=== PATIENT | female | born 1960 | race African-American/Black ===

== ENCOUNTER 2017-04-03 21:46 | Emergency (ER) | payer MEDICARE, MEDICAID ==
[~2017-04-03] VITALS: Ht 182.9 cm; Wt 106.0 kg
[2017-04-03] MEDS ORDERED: SODIUM CHLORIDE 0.9% 1,000 ML IV ONE (22:11)
[2017-04-03] MEDS ORDERED: ONDANSETRON HCL 4MG/2ML VIAL IV STA (22:11)
[2017-04-03] MEDS ORDERED: MORPHINE SULFATE 4 MG/ML CPJ (NOT FOR IM USE) IV STA (22:11)
[2017-04-03] MEDS ORDERED: FAMOTIDINE 20MG/2ML VIAL IV STA (22:11)
[2017-04-03 22:38] LABS: BASOPHILS % 0.7 % (0.0-2.0); EOSINOPHILS % 1.3 % (0.0-5.0); HEMATOCRIT. 28.8 % (36.0-48.0); HEMOGLOBIN. 9.2 g/dL (12.0-16.0); LYMPHOCYTES % 13.7 % (20.0-50.0); MEAN CORPUSCULAR HEMOGLOBIN 26.9 pg (28.0-32.0); MEAN CORPUSCULAR VOLUME 84.2 fL (81.0-99.0); MEAN PLATELET VOLUME 9.8 fl (7.4-10.4); MONOCYTES % 6.2 % (2.0-8.0); NEUTROPHILS % 78.1 % (40.0-76.0); PLATELET 194 x1000/uL (130-400); RED BLOOD CELL COUNT 3.42 mill/uL (4.2-5.4); RED CELL DISTRIBUTION WIDTH 15.2 % (11.6-14.6)
[2017-04-03 22:45] LABS: CARBON DIOXIDE 28 mEq/L (21-32); CHLORIDE 103 mEq/L (98-107); INR 1.1
[2017-04-03 22:50] LABS: ETHANOL BLOOD < 10 mg/dL
[2017-04-03 22:53] LABS: TROPONIN I 0.03 ng/mL (0.00-0.04)
[2017-04-04] MEDS ORDERED: SORBITOL 70% SOLN 30ML PO ONE
[2017-04-04] MEDS ORDERED: NA PHOS,M-B/NA PHOS,DI-BA ENEMA 118ML PR ONE
[2017-04-04] MEDS ORDERED: MORPHINE SULFATE 4 MG/ML CPJ (NOT FOR IM USE) IV ONE (00:45)
[2017-04-04] MEDS ORDERED: ONDANSETRON HCL 4MG/2ML VIAL IV ONE ×2 (00:45→01:45)
[2017-04-04] MEDS ORDERED: KETOROLAC 30MG/ML VIAL IV ONE (00:45)
[2017-04-04] MEDS ORDERED: ONDANSETRON HCL 4MG/2ML VIAL IV NR (01:45)
[2017-04-04] MEDS ORDERED: MORPHINE SULFATE 2 MG/ML CPJ (NOT FOR IM USE) ONE (01:48)
[2017-04-04] MEDS ORDERED: CLONIDINE 0.2MG TABLET PO ONE (02:00)
[2017-04-04 04:20] VITALS: BP 199/96
== END 2017-04-04 04:20 | disposition home or self-care (01) ==
LOC: ER 22:02 → EDBEDREQSVC 22:42 → CANBEDREQ 04-04 02:44 → ER 04-04 04:20
DX: K59.00 Constipation, unspecified (principal); I10 Essential (primary) hypertension; J44.9 Chronic obstructive pulmonary disease, unspecified; E11.9 Type 2 diabetes mellitus without complications; Z86.73 Personal history of transient ischemic attack (TIA), and cerebral infarction without residual deficits; Z88.1 Allergy status to other antibiotic agents
CPT/HCPCS: 36415; 71010; 74176; 80053; 83605; 83690; 83880; 84484; 85025; 85610; 93005; 96361; 96374; 96375; 96376; 99285; G0482; J1885; J2270; J2405; J3490; J7030

== ENCOUNTER 2017-05-01 05:19 | Inpatient (IN) | payer MEDICARE, MEDICAID ==
[2017-05-01] VITALS (33 sets, daily range): BP systolic 139–164; BP diastolic 69–84
[~2017-05-01] VITALS: Ht 165.1 cm; Wt 112.5 kg
[2017-05-01] MEDS ORDERED: METHYLPREDNISOLONE SOD SUCC 125 MG/2 ML VIAL IV STA (05:25)
[2017-05-01] MEDS ORDERED: ALBUTEROL (0.083%) 2.5MG/3ML NEB HHN STA (05:25)
[2017-05-01] MEDS ORDERED: IPRATROPIUM BROMIDE (0.02%) 0.5MG/2.5ML NEB HHN STA (05:25)
[2017-05-01] MEDS ORDERED: LORAZEPAM 2MG/ML CPJ ONE (06:13)
[2017-05-01] MEDS ORDERED: PROPOFOL 10MG/ML 100ML 100 ML IV SCH (06:15)
[2017-05-01] MEDS ORDERED: LORAZEPAM 2MG/ML CPJ IV ONE ×2 (06:15)
[2017-05-01 06:17] LABS: CARBON DIOXIDE 21 mEq/L (21-32); CHLORIDE 107 mEq/L (98-107); TROPONIN I 0.02 ng/mL (0.00-0.04)
[2017-05-01 06:18] LABS: INR 1.1; PROTHROMBIN TIME 11.1 sec
[2017-05-01 06:41] LABS: CLARITY URINE TURBID (CLEAR); COLOR URINE YELLOW (YELLOW); GLUCOSE URINE NEGATIVE (NEGATIVE); KETONES URINE NEGATIVE (NEGATIVE); LEUKOCYTE ESTERASE URINE NEGATIVE (NEGATIVE); NITRITE URINE NEGATIVE (NEGATIVE); OCCULT BLOOD URINE 3+ (NEGATIVE); PROTEIN URINE 3+ (NEGATIVE); SPECIFIC GRAVITY URINE 1.017 (1.005-1.030); UROBILINOGEN URINE 0.2 E.U./dL (0.2-1.0)
[2017-05-01] MEDS ORDERED: NITROGLYCERIN 50MG PREMIX 250 ML IV ONE (06:45)
[2017-05-01] MEDS ORDERED: LEVOFLOXACIN 750MG PREMIX 150 ML IV ONE (06:45)
[2017-05-01] MEDS ORDERED: FUROSEMIDE 100MG/10ML VIAL IV SCH (06:45)
[2017-05-01 06:59] LABS: BASOPHILS % 0.4 % (0.0-2.0); EOSINOPHILS % 1.3 % (0.0-5.0); HEMATOCRIT. 28.1 % (36.0-48.0); HEMOGLOBIN. 8.8 g/dL (12.0-16.0); LYMPHOCYTES % 8.1 % (20.0-50.0); MEAN CORPUSCULAR HEMOGLOBIN 26.9 pg (28.0-32.0); MEAN CORPUSCULAR VOLUME 85.6 fL (81.0-99.0); MEAN PLATELET VOLUME 9.2 fl (7.4-10.4); MONOCYTES % 4.1 % (2.0-8.0); NEUTROPHILS % 86.1 % (40.0-76.0); PLATELET 170 x1000/uL (130-400); RED BLOOD CELL COUNT 3.28 mill/uL (4.2-5.4); RED CELL DISTRIBUTION WIDTH 16.7 % (11.6-14.6)
[2017-05-01 07:01] LABS: BG BASE EXCESS -5.6 mmol/L (-2.0-2.0); BG CARBOXYHEMOGLOBIN 0.1 % (0.5-1.5); BG DEOXYHEMOGLOBIN 1.4 % (0.0-5.0); BG FRACTION INSPIRED OXYGEN 100; BG HCO3 ACT 20.4 mmol/L (22.0-26.0); BG METHEMOGLOBIN 0.4 % (0.0-1.5); BG OXYGEN SATURATION 98.6 % (92.0-98.5); BG OXYHEMOGLOBIN 98.1 % (94.0-97.0); BG PCO2 42.3 mmHg (35.0-45.0); BG PH 7.302 (7.350-7.450); BG PO2 165.4 mmHg (75.0-100.0); BG SAMPLE SITE LEFT RADIAL; BG TIDAL VOLUME(mL) 500 mL; BG TOTAL HEMOGLOBIN 9.5 g/dL (12.0-18.0); BG VENT MODE VENT - A/C; BG VENT RATE 14 set
[2017-05-01] MEDS ORDERED: SUCR1TAB30 PO (08:25)
[2017-05-01] MEDS ORDERED: POTA10TA15 PO (08:25)
[2017-05-01] MEDS ORDERED: VENL-180 PO (08:25)
[2017-05-01] MEDS ORDERED: NEPVIT PO (08:25)
[2017-05-01] MEDS ORDERED: RANI150C12 PO (08:25)
[2017-05-01] MEDS ORDERED: METO-298 PO (08:25)
[2017-05-01] MEDS ORDERED: DOCU-138 PO (08:25)
[2017-05-01] MEDS ORDERED: DOXA2TAB2 PO (08:25)
[2017-05-01] MEDS ORDERED: NAPR-679 PO (08:25)
[2017-05-01] MEDS ORDERED: CLON0.3T PO (08:32)
[2017-05-01] MEDS ORDERED: LORAZEPAM 2MG/ML CPJ IV PRN (09:00)
[2017-05-01] MEDS ORDERED: ENOXAPARIN 40MG/0.4ML SYR SUBCUT SCH ×2 (09:00→09:15)
[2017-05-01] MEDS ORDERED: LORAZEPAM 0.5MG TABLET PO PRN (09:15)
[2017-05-01] MEDS ORDERED: NOREPINEPHRINE 4 MG in DEXT 5% WATER 246 ML IV PRN (09:15)
[2017-05-01] MEDS ORDERED: HYDROMORPHONE HCL/PF 2MG/ML CPJ IV PRN (09:15)
[2017-05-01] MEDS ORDERED: DIPHENHYDRAMINE 50MG/ML VIAL IV PRN (09:15)
[2017-05-01] MEDS ORDERED: ACETAMINOPHEN 650MG SUPP PR PRN (09:15)
[2017-05-01] MEDS ORDERED: MAGNESIUM/ALUMINUM HYDROXIDE/SIMETHICONE 30ML UDC PO PRN (09:15)
[2017-05-01] MEDS ORDERED: DEXTROSE 50% WATER 50ML SYRINGE IV PRN ×2 (09:15→17:15)
[2017-05-01] MEDS ORDERED: ACETAMINOPHEN 325MG TABLET NG PRN (09:15)
[2017-05-01] MEDS ORDERED: IPRATROPIUM/ALBUTEROL 0.5-3(2.5)MG/3ML NEB INH PRN (09:15)
[2017-05-01] MEDS ORDERED: DOCUSATE SODIUM 100MG CAPSULE PO PRN (09:15)
[2017-05-01] MEDS ORDERED: LEVOFLOXACIN 500MG PREMIX 100 ML IV SCH (09:30)
[2017-05-01 09:33] LABS: *AMPHETAMINES SCREEN URINE NEGATIVE (NEGATIVE); *BARBITURATES SCREEN URINE NEGATIVE (NEGATIVE); *BENZODIAZEPINES SCREEN URINE PRESUMTIVE POSITIVE (NEGATIVE); *COCAINE SCREEN URINE NEGATIVE (NEGATIVE); CANNABINOID URINE SCREEN NEGATIVE (NEGATIVE); METHADONE URINE SCREEN NEGATIVE (NEGATIVE); OPIATES URINE SCREEN PRESUMTIVE POSITIVE (NEGATIVE); PHENCYCLIDINE URINE SCREEN NEGATIVE (NEGATIVE)
[2017-05-01] MEDS: PANTOPRAZOLE SODIUM 40 MG/VIAL IV SCH (09:34)
[2017-05-01] MEDS: SODIUM CHLORIDE 0.9% 1,000 ML IV SCH (09:35)
[2017-05-01] MEDS: PROPOFOL 10MG/ML 100ML 100 ML IV PRN ×4 (09:36→23:02)
[2017-05-01] MEDS ORDERED: METOPROLOL TARTRATE 50MG TABLET PO ONE (09:45)
[2017-05-01] MEDS ORDERED: PANTOPRAZOLE SODIUM 40 MG/VIAL IV SCH (09:45)
[2017-05-01] MEDS: FOLIC ACID/VITAMIN B COMP W-C TABLET PO SCH (09:59)
[2017-05-01] MEDS: METOPROLOL TARTRATE 50MG TABLET PO SCH (09:59)
[2017-05-01] MEDS: BLOOD SUGAR DIAGNOSTIC STRIP TEST SCH ×3 (11:04→20:51)
[2017-05-01] MEDS: INSULIN LISPRO 100 UNITS/ML SUBCUT SCH ×3 (11:05→21:01)
[2017-05-01] MEDS: DOXAZOSIN MESYLATE 2MG TABLET PO SCH (11:06)
[2017-05-01] MEDS ORDERED: SUCCINYLCHOLINE CHLORIDE 200MG/10ML VIAL IV ONE (11:13)
[2017-05-01] MEDS ORDERED: ETOMIDATE 2MG/ML 10ML VIAL IV ONE (11:13)
[2017-05-01] MEDS: IPRATROPIUM/ALBUTEROL 0.5-3(2.5)MG/3ML NEB HHN SCH ×3 (11:15→19:59)
[2017-05-01] MEDS ORDERED: IPRATROPIUM/ALBUTEROL 0.5-3(2.5)MG/3ML NEB HHN SCH (12:00)
[2017-05-01] MEDS ORDERED: DOCUSATE SODIUM SUGAR FREE 100MG/10ML UDC NG PRN (12:15)
[2017-05-01] MEDS: CLONIDINE 0.3MG TABLET PO SCH ×3 (12:21→20:53)
[2017-05-01] MEDS: DOCUSATE SODIUM SUGAR FREE 100MG/10ML UDC NG SCH ×3 (12:21→20:50)
[2017-05-01] MEDS: METHYLPREDNISOLONE SOD SUCC 40 MG/ML VIAL IV SCH ×2 (13:00→21:17)
[2017-05-01] MEDS ORDERED: DOCUSATE SODIUM 100MG CAPSULE PO SCH (13:00)
[2017-05-01] MEDS ORDERED: METHYLPREDNISOLONE SOD SUCC 125 MG/2 ML VIAL IV SCH (14:00)
[2017-05-01 15:29] LABS: CREATINE KINASE MB FRACTION 2.8 ng/mL (0.5-3.6); TROPONIN I 0.12 ng/mL (0.00-0.04)
[2017-05-01] MEDS: FUROSEMIDE 40MG/4ML VIAL IVP SCH (17:06)
[2017-05-01] MEDS ORDERED: INSULIN LISPRO 100 UNITS/ML SUBCUT SCH (18:20)
[2017-05-01] MEDS: METRONIDAZOLE 500 MG PREMIX 100 ML IV SCH (20:53)
[2017-05-01] MEDS ORDERED: VANCOMYCIN 2,000 MG in DEXT 5% WATER 500 ML IV SCH (21:00)
[2017-05-01 22:42] LABS: CREATINE KINASE MB FRACTION 2.2 ng/mL (0.5-3.6); TROPONIN I 0.08 ng/mL (0.00-0.04)
[2017-05-02] VITALS (64 sets, daily range): BP systolic 122–199; BP diastolic 57–117
[2017-05-02] MEDS: INSULIN LISPRO 100 UNITS/ML SUBCUT SCH ×6 (00:56→20:25)
[2017-05-02] MEDS: METRONIDAZOLE 500 MG PREMIX 100 ML IV SCH ×3 (03:54→20:20)
[2017-05-02] MEDS: PROPOFOL 10MG/ML 100ML 100 ML IV PRN ×2 (03:54→08:58)
[2017-05-02] MEDS: BLOOD SUGAR DIAGNOSTIC STRIP TEST SCH ×6 (03:54→20:20)
[2017-05-02] MEDS: IPRATROPIUM/ALBUTEROL 0.5-3(2.5)MG/3ML NEB HHN SCH ×7 (04:03→23:50)
[2017-05-02] MEDS: METHYLPREDNISOLONE SOD SUCC 40 MG/ML VIAL IV SCH ×3 (05:07→21:16)
[2017-05-02] MEDS: SODIUM CHLORIDE 0.9% 1,000 ML IV SCH (05:07)
[2017-05-02] MEDS: FUROSEMIDE 40MG/4ML VIAL IVP SCH ×2 (05:07→14:19)
[2017-05-02 05:21] LABS: BASOPHILS % 0.1 % (0.0-2.0); HEMATOCRIT. 24.9 % (36.0-48.0); LYMPHOCYTES % 7.3 % (20.0-50.0); MEAN CORPUSCULAR HEMOGLOBIN 27.4 pg (28.0-32.0); MEAN CORPUSCULAR VOLUME 84.9 fL (81.0-99.0); MEAN PLATELET VOLUME 10.1 fl (7.4-10.4); MONOCYTES % 4.3 % (2.0-8.0); NEUTROPHILS % 88.3 % (40.0-76.0); PLATELET 168 x1000/uL (130-400); RED BLOOD CELL COUNT 2.93 mill/uL (4.2-5.4); RED CELL DISTRIBUTION WIDTH 16.7 % (11.6-14.6)
[2017-05-02 05:38] LABS: CREATINE KINASE MB FRACTION 1.9 ng/mL (0.5-3.6); TROPONIN I 0.06 ng/mL (0.00-0.04)
[2017-05-02 08:31] LABS: BG BASE EXCESS -0.9 mmol/L (-2.0-2.0); BG CARBOXYHEMOGLOBIN 0.3 % (0.5-1.5); BG FRACTION INSPIRED OXYGEN 50; BG HCO3 ACT 24.2 mmol/L (22.0-26.0); BG METHEMOGLOBIN 0.2 % (0.0-1.5); BG OXYHEMOGLOBIN 98.5 % (94.0-97.0); BG PCO2 41.7 mmHg (35.0-45.0); BG PH 7.381 (7.350-7.450); BG PO2 168.7 mmHg (75.0-100.0); BG SAMPLE SITE RIGHT RADIAL; BG TIDAL VOLUME(mL) 550 mL; BG TOTAL HEMOGLOBIN 8.6 g/dL (12.0-18.0); BG VENT MODE VENT - A/C; BG VENT RATE 14 set
[2017-05-02 08:53] LABS: T4 FREE 1.54 ng/dL (0.76-1.46)
[2017-05-02] MEDS: FOLIC ACID/VITAMIN B COMP W-C TABLET PO SCH (08:56)
[2017-05-02] MEDS: PANTOPRAZOLE SODIUM 40 MG/VIAL IV SCH (08:56)
[2017-05-02] MEDS: DOCUSATE SODIUM SUGAR FREE 100MG/10ML UDC NG SCH ×4 (08:56→20:19)
[2017-05-02] MEDS: POTASSIUM CHLORIDE 20MEQ TABLET SR PO SCH (08:56)
[2017-05-02] MEDS: DOXAZOSIN MESYLATE 2MG TABLET PO SCH (08:57)
[2017-05-02] MEDS: METOPROLOL TARTRATE 50MG TABLET PO SCH (08:57)
[2017-05-02] MEDS ORDERED: ENOXAPARIN 40MG/0.4ML SYR SUBCUT SCH (09:00)
[2017-05-02] MEDS: AZTREONAM 1 G in DEXTROSE 5% WATER 50 ML IV SCH ×2 (10:05→21:16)
[2017-05-02] MEDS: CLONIDINE 0.3MG TABLET PO SCH ×4 (10:05→20:20)
[2017-05-02] MEDS: ENALAPRIL 1.25MG/ML VIAL 1ML IV PRN (10:05)
[2017-05-02] MEDS: LEVOFLOXACIN 250MG PREMIX 50 ML IV SCH (10:24)
[2017-05-02] MEDS: FENTANYL CITRATE/PF 500 MCG in SODIUM CHLORIDE 0.9% 40 ML IV PRN ×2 (11:10→16:06)
[2017-05-02 11:22] LABS: TROPONIN I 0.06 ng/mL (0.00-0.04)
[2017-05-02 11:23] LABS: CREATINE KINASE MB FRACTION 1.9 ng/mL (0.5-3.6)
[2017-05-02] MEDS: LORAZEPAM 2MG/ML CPJ IV PRN (13:27)
[2017-05-02] MEDS ORDERED: HYDRALAZINE 20MG/ML VIAL IV SCH (14:00)
[2017-05-02] MEDS ORDERED: SODIUM CHLORIDE 0.9% 1,000 ML IV SCH (14:02)
[2017-05-02] MEDS ORDERED: NITROGLYCERIN 50MG PREMIX 250 ML IV SCH (14:15)
[2017-05-02] MEDS: AMLODIPINE 5MG TABLET NG SCH (14:34)
[2017-05-02] MEDS: NITROGLYCERIN 50MG PREMIX 250 ML IV SCH (15:48)
[2017-05-02] MEDS ORDERED: SODIUM CHLORIDE 0.9% 1,000 ML IV ONE (16:54)
[2017-05-02] MEDS: VANCOMYCIN 750 MG PREMIX 150 ML IV SCH (20:20)
[2017-05-02] MEDS ORDERED: FENTANYL CITRATE/PF 1,000 MCG in SODIUM CHLORIDE 0.9% 80 ML IV PRN (21:00)
[2017-05-02] MEDS ORDERED: VANCOMYCIN 1 G PREMIX 200 ML IV SCH (21:00)
[2017-05-02] MEDS: INSULIN DETEMIR UD 100 UNITS/ML SYR SUBCUT SCH (21:20)
[2017-05-03] VITALS (107 sets, daily range): BP systolic 128–184; BP diastolic 47–160
[2017-05-03] MEDS: BLOOD SUGAR DIAGNOSTIC STRIP TEST SCH ×6 (00:49→20:24)
[2017-05-03] MEDS: INSULIN LISPRO 100 UNITS/ML SUBCUT SCH ×7 (01:02→23:43)
[2017-05-03] MEDS ORDERED: FENTANYL CITRATE/PF 1,000 MCG in SODIUM CHLORIDE 0.9% 100 ML IV PRN (01:15)
[2017-05-03] MEDS: LORAZEPAM 2MG/ML CPJ IV PRN ×3 (03:01→23:30)
[2017-05-03] MEDS: METRONIDAZOLE 500 MG PREMIX 100 ML IV SCH ×3 (03:44→19:43)
[2017-05-03] MEDS: IPRATROPIUM/ALBUTEROL 0.5-3(2.5)MG/3ML NEB HHN SCH ×5 (04:17→20:40)
[2017-05-03] MEDS: METHYLPREDNISOLONE SOD SUCC 40 MG/ML VIAL IV SCH ×2 (05:49→20:24)
[2017-05-03] MEDS: FENTANYL CITRATE/PF 1,000 MCG in SODIUM CHLORIDE 0.9% 80 ML IV PRN ×2 (05:50→19:20)
[2017-05-03 06:24] LABS: TROPONIN I 0.04 ng/mL (0.00-0.04)
[2017-05-03 07:46] LABS: BASOPHILS % 0.1 % (0.0-2.0); LYMPHOCYTES % 7.6 % (20.0-50.0); MEAN CORPUSCULAR HEMOGLOBIN 27.4 pg (28.0-32.0); MEAN CORPUSCULAR VOLUME 83.5 fL (81.0-99.0); MONOCYTES % 5.3 % (2.0-8.0); PLATELET 183 x1000/uL (130-400); RED BLOOD CELL COUNT 2.48 mill/uL (4.2-5.4); RED CELL DISTRIBUTION WIDTH 16.9 % (11.6-14.6)
[2017-05-03 07:51] LABS: HEMATOCRIT. 20.7 % (36.0-48.0); HEMOGLOBIN. 6.8 g/dL (12.0-16.0)
[2017-05-03 08:26] LABS: BG BASE EXCESS -1.1 mmol/L (-2.0-2.0); BG CARBOXYHEMOGLOBIN 0.6 % (0.5-1.5); BG DEOXYHEMOGLOBIN 2.6 % (0.0-5.0); BG FRACTION INSPIRED OXYGEN 40; BG HCO3 ACT 24.6 mmol/L (22.0-26.0); BG METHEMOGLOBIN 0.6 % (0.0-1.5); BG OXYGEN SATURATION 97.4 % (92.0-98.5); BG OXYHEMOGLOBIN 96.2 % (94.0-97.0); BG PCO2 45.6 mmHg (35.0-45.0); BG PH 7.349 (7.350-7.450); BG PO2 101.3 mmHg (75.0-100.0); BG SAMPLE SITE RIGHT RADIAL; BG TIDAL VOLUME(mL) 550 mL; BG TOTAL HEMOGLOBIN 7.7 g/dL (12.0-18.0); BG VENT MODE VENT - A/C; BG VENT RATE 14 set
[2017-05-03] MEDS: AZTREONAM 1 G in DEXTROSE 5% WATER 50 ML IV SCH ×2 (08:41→21:09)
[2017-05-03] MEDS: AMLODIPINE 5MG TABLET NG SCH (08:41)
[2017-05-03] MEDS: PANTOPRAZOLE SODIUM 40 MG/VIAL IV SCH (08:41)
[2017-05-03] MEDS: DOCUSATE SODIUM SUGAR FREE 100MG/10ML UDC NG SCH ×4 (08:41→21:09)
[2017-05-03] MEDS: ONDANSETRON HCL 4MG/2ML VIAL IV PRN (08:41)
[2017-05-03] MEDS: CLONIDINE 0.3MG TABLET PO SCH ×4 (08:42→20:24)
[2017-05-03] MEDS: METOPROLOL TARTRATE 25MG TABLET PO SCH ×2 (08:42→20:23)
[2017-05-03] MEDS: FOLIC ACID/VITAMIN B COMP W-C TABLET PO SCH (08:42)
[2017-05-03] MEDS: DOXAZOSIN MESYLATE 2MG TABLET PO SCH (08:45)
[2017-05-03] MEDS: NITROGLYCERIN 50MG PREMIX 250 ML IV SCH ×3 (08:53→17:03)
[2017-05-03] MEDS: POTASSIUM CHLORIDE 20MEQ TABLET SR PO SCH ×2 (09:00→16:38)
[2017-05-03] MEDS: FUROSEMIDE 40MG/4ML VIAL IVP SCH ×2 (09:00→16:38)
[2017-05-03] MEDS: LEVOFLOXACIN 250MG PREMIX 50 ML IV SCH (11:09)
[2017-05-03] MEDS: METOCLOPRAMIDE HCL 10MG/2ML VIAL IV SCH ×3 (12:08→23:43)
[2017-05-03] MEDS: HYDRALAZINE HCL 50MG TABLET PO SCH (18:37)
[2017-05-03 20:17] LABS: HEMATOCRIT 25.4 % (36.0-48.0); HEMOGLOBIN 8.3 g/dL (12.0-16.0)
[2017-05-03] MEDS: VANCOMYCIN 750 MG PREMIX 150 ML IV SCH (21:09)
[2017-05-03] MEDS: INSULIN DETEMIR UD 100 UNITS/ML SYR SUBCUT SCH (21:10)
[2017-05-04] VITALS (77 sets, daily range): BP systolic 128–180; BP diastolic 57–117
[2017-05-04] MEDS: IPRATROPIUM/ALBUTEROL 0.5-3(2.5)MG/3ML NEB HHN SCH ×6 (00:18→20:26)
[2017-05-04] MEDS: BLOOD SUGAR DIAGNOSTIC STRIP TEST SCH ×6 (00:21→21:09)
[2017-05-04] MEDS: METRONIDAZOLE 500 MG PREMIX 100 ML IV SCH ×3 (04:26→19:53)
[2017-05-04] MEDS: FENTANYL CITRATE/PF 1,000 MCG in SODIUM CHLORIDE 0.9% 80 ML IV PRN (04:39)
[2017-05-04] MEDS: INSULIN LISPRO 100 UNITS/ML SUBCUT SCH ×5 (05:25→21:09)
[2017-05-04] MEDS: METOCLOPRAMIDE HCL 10MG/2ML VIAL IV SCH ×4 (05:26→23:08)
[2017-05-04] MEDS: HYDRALAZINE HCL 50MG TABLET PO SCH ×3 (05:26→21:09)
[2017-05-04 07:21] LABS: BG BASE EXCESS -2.5 mmol/L (-2.0-2.0); BG CARBOXYHEMOGLOBIN 0.3 % (0.5-1.5); BG HCO3 ACT 22.1 mmol/L (22.0-26.0); BG METHEMOGLOBIN 0.4 % (0.0-1.5); BG OXYHEMOGLOBIN 97.3 % (94.0-97.0); BG PCO2 37.1 mmHg (35.0-45.0); BG PH 7.392 (7.350-7.450); BG PO2 126.4 mmHg (75.0-100.0); BG SAMPLE SITE RIGHT RADIAL; BG TIDAL VOLUME(mL) 600 mL; BG TOTAL HEMOGLOBIN 10.2 g/dL (12.0-18.0); BG VENT MODE VENT - A/C; BG VENT RATE 14 set
[2017-05-04 07:29] LABS: BASOPHILS % 0.3 % (0.0-2.0); HEMATOCRIT. 27.1 % (36.0-48.0); HEMOGLOBIN. 8.7 g/dL (12.0-16.0); LYMPHOCYTES % 8.6 % (20.0-50.0); MEAN CORPUSCULAR HEMOGLOBIN 26.7 pg (28.0-32.0); MEAN CORPUSCULAR VOLUME 83.4 fL (81.0-99.0); MEAN PLATELET VOLUME 9.9 fl (7.4-10.4); MONOCYTES % 4.4 % (2.0-8.0); NEUTROPHILS % 86.7 % (40.0-76.0); PLATELET 187 x1000/uL (130-400); RED BLOOD CELL COUNT 3.25 mill/uL (4.2-5.4); RED CELL DISTRIBUTION WIDTH 17.2 % (11.6-14.6)
[2017-05-04] MEDS: PANTOPRAZOLE SODIUM 40 MG/VIAL IV SCH (08:37)
[2017-05-04] MEDS: AMLODIPINE 5MG TABLET NG SCH ×2 (08:37→20:56)
[2017-05-04] MEDS: FUROSEMIDE 40MG/4ML VIAL IVP SCH (08:37)
[2017-05-04] MEDS: METHYLPREDNISOLONE SOD SUCC 40 MG/ML VIAL IV SCH ×2 (08:37→20:55)
[2017-05-04] MEDS: DOCUSATE SODIUM SUGAR FREE 100MG/10ML UDC NG SCH ×4 (08:37→20:56)
[2017-05-04] MEDS: POTASSIUM CHLORIDE 20MEQ TABLET SR PO SCH (08:38)
[2017-05-04] MEDS: CLONIDINE 0.3MG TABLET PO SCH ×4 (08:38→20:56)
[2017-05-04] MEDS: METOPROLOL TARTRATE 25MG TABLET PO SCH ×2 (08:38→20:55)
[2017-05-04] MEDS: FOLIC ACID/VITAMIN B COMP W-C TABLET PO SCH (08:38)
[2017-05-04] MEDS: AZTREONAM 1 G in DEXTROSE 5% WATER 50 ML IV SCH ×2 (08:59→20:56)
[2017-05-04] MEDS ORDERED: BISACODYL 5MG TABLET PO PRN (09:45)
[2017-05-04] MEDS ORDERED: BISACODYL 10MG SUPP PR PRN (09:45)
[2017-05-04] MEDS ORDERED: LACTULOSE 20G/30ML UDC PO PRN (09:45)
[2017-05-04] MEDS: POLYETHYLENE GLYCOL 3350 (17GM) 1 DOSE PACK PO SCH (10:40)
[2017-05-04 11:39] LABS: BG BASE EXCESS -0.4 mmol/L (-2.0-2.0); BG CARBOXYHEMOGLOBIN 0.3 % (0.5-1.5); BG CPAP (cmH2O) 0 cm(H2O); BG DEOXYHEMOGLOBIN 5.3 % (0.0-5.0); BG METHEMOGLOBIN 0.3 % (0.0-1.5); BG OXYGEN SATURATION 94.7 % (92.0-98.5); BG OXYHEMOGLOBIN 94.1 % (94.0-97.0); BG PCO2 44.2 mmHg (35.0-45.0); BG PH 7.371 (7.350-7.450); BG PO2 81.4 mmHg (75.0-100.0); BG SAMPLE SITE RIGHT RADIAL; BG TOTAL HEMOGLOBIN 10.4 g/dL (12.0-18.0); BG VENT MODE VENT - CPAP
[2017-05-04] MEDS ORDERED: LIDOCAINE HCL/PF 1% 2ML VIAL ONE (11:53)
[2017-05-04] MEDS: HYDROMORPHONE HCL/PF 2MG/ML CPJ IV PRN ×2 (14:47→20:55)
[2017-05-04] MEDS: ENALAPRIL 1.25MG/ML VIAL 1ML IV PRN (14:49)
[2017-05-04] MEDS: INSULIN DETEMIR UD 100 UNITS/ML SYR SUBCUT SCH (21:10)
[2017-05-04] MEDS: LORAZEPAM 2MG/ML CPJ IV PRN (23:55)
[2017-05-05] VITALS (32 sets, daily range): BP systolic 135–197; BP diastolic 61–109
[2017-05-05] MEDS: IPRATROPIUM/ALBUTEROL 0.5-3(2.5)MG/3ML NEB HHN SCH ×6 (00:07→20:12)
[2017-05-05] MEDS: ONDANSETRON HCL 4MG/2ML VIAL IV PRN (04:44)
[2017-05-05] MEDS: HYDROMORPHONE HCL/PF 2MG/ML CPJ IV PRN ×6 (04:44→22:05)
[2017-05-05] MEDS: METRONIDAZOLE 500 MG PREMIX 100 ML IV SCH ×3 (04:44→20:08)
[2017-05-05] MEDS: METOCLOPRAMIDE HCL 10MG/2ML VIAL IV SCH ×4 (05:27→23:11)
[2017-05-05] MEDS: HYDRALAZINE HCL 50MG TABLET PO SCH ×3 (05:38→22:08)
[2017-05-05] MEDS: BLOOD SUGAR DIAGNOSTIC STRIP TEST SCH ×4 (09:00→20:22)
[2017-05-05] MEDS: DOCUSATE SODIUM SUGAR FREE 100MG/10ML UDC NG SCH ×4 (09:27→20:24)
[2017-05-05] MEDS: VANCOMYCIN 1 G PREMIX 200 ML IV SCH (09:27)
[2017-05-05] MEDS: POTASSIUM CHLORIDE 20MEQ TABLET SR PO SCH (09:27)
[2017-05-05] MEDS: AZTREONAM 1 G in DEXTROSE 5% WATER 50 ML IV SCH ×2 (09:27→20:25)
[2017-05-05] MEDS: POLYETHYLENE GLYCOL 3350 (17GM) 1 DOSE PACK PO SCH (09:28)
[2017-05-05] MEDS: METOPROLOL TARTRATE 25MG TABLET PO SCH ×2 (09:28→20:24)
[2017-05-05] MEDS: FOLIC ACID/VITAMIN B COMP W-C TABLET PO SCH (09:28)
[2017-05-05] MEDS: AMLODIPINE 5MG TABLET NG SCH ×2 (09:29→20:24)
[2017-05-05] MEDS: FUROSEMIDE 40MG/4ML VIAL IVP SCH (09:29)
[2017-05-05] MEDS: PANTOPRAZOLE SODIUM 40 MG/VIAL IV SCH (09:29)
[2017-05-05] MEDS: CLONIDINE 0.3MG TABLET PO SCH ×4 (09:29→20:24)
[2017-05-05] MEDS: METHYLPREDNISOLONE SOD SUCC 40 MG/ML VIAL IV SCH ×2 (09:29→20:24)
[2017-05-05] MEDS: INSULIN LISPRO 100 UNITS/ML SUBCUT SCH ×4 (09:45→20:35)
[2017-05-05 11:39] LABS: HEMATOCRIT 28.8 % (36.0-48.0); HEMOGLOBIN 9.4 g/dL (12.0-16.0); MEAN CORPUSCULAR HEMOGLOBIN 27.2 pg (28.0-32.0); MEAN CORPUSCULAR VOLUME 83.2 fL (81.0-99.0); PLATELET 196 x1000/uL (130-400); RED BLOOD CELL COUNT 3.47 mill/uL (4.2-5.4); RED CELL DISTRIBUTION WIDTH 16.7 % (11.6-14.6)
[2017-05-05] MEDS: ENALAPRIL 1.25MG/ML VIAL 1ML IV PRN (12:43)
[2017-05-05] MEDS: INSULIN DETEMIR UD 100 UNITS/ML SYR SUBCUT SCH (22:08)
[2017-05-05] MEDS: CLONIDINE 0.1MG TABLET PO PRN (23:42)
[2017-05-06] VITALS (17 sets, daily range): BP systolic 133–198; BP diastolic 44–106
[2017-05-06] MEDS: IPRATROPIUM/ALBUTEROL 0.5-3(2.5)MG/3ML NEB HHN SCH ×6 (00:22→20:14)
[2017-05-06] MEDS: ENALAPRIL 1.25MG/ML VIAL 1ML IV PRN (02:10)
[2017-05-06] MEDS: METRONIDAZOLE 500 MG PREMIX 100 ML IV SCH ×3 (03:14→20:05)
[2017-05-06] MEDS: HYDROMORPHONE HCL/PF 2MG/ML CPJ IV PRN ×5 (03:15→23:24)
[2017-05-06] MEDS: HYDRALAZINE HCL 50MG TABLET PO SCH ×3 (05:43→22:11)
[2017-05-06] MEDS: METOCLOPRAMIDE HCL 10MG/2ML VIAL IV SCH ×4 (05:43→23:23)
[2017-05-06] MEDS: CLONIDINE 0.1MG TABLET PO PRN (05:44)
[2017-05-06] MEDS: BLOOD SUGAR DIAGNOSTIC STRIP TEST SCH ×4 (05:44→21:00)
[2017-05-06] MEDS: INSULIN LISPRO 100 UNITS/ML SUBCUT SCH ×4 (05:46→21:13)
[2017-05-06] MEDS: AMLODIPINE 5MG TABLET NG SCH (08:23)
[2017-05-06] MEDS: POTASSIUM CHLORIDE 20MEQ TABLET SR PO SCH (08:23)
[2017-05-06] MEDS: FOLIC ACID/VITAMIN B COMP W-C TABLET PO SCH (08:23)
[2017-05-06] MEDS: CLONIDINE 0.3MG TABLET PO SCH ×4 (08:23→21:15)
[2017-05-06] MEDS: DOCUSATE SODIUM SUGAR FREE 100MG/10ML UDC NG SCH ×4 (08:24→21:13)
[2017-05-06] MEDS: METOPROLOL TARTRATE 25MG TABLET PO SCH ×2 (08:24→21:15)
[2017-05-06] MEDS: PANTOPRAZOLE SODIUM 40 MG/VIAL IV SCH (08:25)
[2017-05-06] MEDS: METHYLPREDNISOLONE SOD SUCC 40 MG/ML VIAL IV SCH ×2 (08:25→21:13)
[2017-05-06] MEDS: FUROSEMIDE 40MG/4ML VIAL IVP SCH (08:25)
[2017-05-06] MEDS: AZTREONAM 1 G in DEXTROSE 5% WATER 50 ML IV SCH ×2 (08:26→21:13)
[2017-05-06] MEDS: POLYETHYLENE GLYCOL 3350 (17GM) 1 DOSE PACK PO SCH (08:26)
[2017-05-06] MEDS ORDERED: AMLODIPINE 5MG TABLET PO NR (10:45)
[2017-05-06] MEDS: AMLODIPINE 10MG TABLET NG SCH (21:14)
[2017-05-06] MEDS: INSULIN DETEMIR UD 100 UNITS/ML SYR SUBCUT SCH (22:12)
[2017-05-06] MEDS: VANCOMYCIN 1 G PREMIX 200 ML IV SCH (22:12)
[2017-05-07] VITALS (12 sets, daily range): BP systolic 104–178; BP diastolic 55–103
[2017-05-07] MEDS: IPRATROPIUM/ALBUTEROL 0.5-3(2.5)MG/3ML NEB HHN SCH ×6 (00:22→20:05)
[2017-05-07] MEDS: CLONIDINE 0.1MG TABLET PO PRN ×2 (00:28→06:28)
[2017-05-07] MEDS: METRONIDAZOLE 500 MG PREMIX 100 ML IV SCH ×3 (03:18→20:09)
[2017-05-07] MEDS: HYDROMORPHONE HCL/PF 2MG/ML CPJ IV PRN ×7 (03:20→21:16)
[2017-05-07] MEDS: METOCLOPRAMIDE HCL 10MG/2ML VIAL IV SCH ×3 (06:28→17:34)
[2017-05-07] MEDS: HYDRALAZINE HCL 50MG TABLET PO SCH ×3 (06:29→22:32)
[2017-05-07] MEDS: BLOOD SUGAR DIAGNOSTIC STRIP TEST SCH ×4 (06:30→21:00)
[2017-05-07] MEDS: INSULIN LISPRO 100 UNITS/ML SUBCUT SCH ×4 (06:54→21:08)
[2017-05-07] MEDS ORDERED: LORAZEPAM 2MG/ML CPJ IV PRN (08:45)
[2017-05-07 08:50] LABS: HEMATOCRIT. 30.5 % (36.0-48.0); HEMOGLOBIN. 9.9 g/dL (12.0-16.0); MEAN CORPUSCULAR HEMOGLOBIN 27.1 pg (28.0-32.0); MEAN CORPUSCULAR VOLUME 83.6 fL (81.0-99.0); MEAN PLATELET VOLUME 9.3 fl (7.4-10.4); PLATELET 209 x1000/uL (130-400); RED BLOOD CELL COUNT 3.65 mill/uL (4.2-5.4); RED CELL DISTRIBUTION WIDTH 16.5 % (11.6-14.6)
[2017-05-07] MEDS: METHYLPREDNISOLONE SOD SUCC 40 MG/ML VIAL IV SCH (08:50)
[2017-05-07] MEDS: FUROSEMIDE 40MG/4ML VIAL IVP SCH (08:51)
[2017-05-07] MEDS: PANTOPRAZOLE SODIUM 40 MG/VIAL IV SCH (08:51)
[2017-05-07] MEDS: AZTREONAM 1 G in DEXTROSE 5% WATER 50 ML IV SCH ×2 (08:52→21:16)
[2017-05-07] MEDS: DOCUSATE SODIUM SUGAR FREE 100MG/10ML UDC NG SCH ×4 (08:52→21:00)
[2017-05-07] MEDS: POLYETHYLENE GLYCOL 3350 (17GM) 1 DOSE PACK PO SCH (09:00)
[2017-05-07] MEDS: POTASSIUM CHLORIDE 20MEQ TABLET SR PO SCH (09:01)
[2017-05-07] MEDS: FOLIC ACID/VITAMIN B COMP W-C TABLET PO SCH (09:01)
[2017-05-07] MEDS: CLONIDINE 0.3MG TABLET PO SCH ×4 (09:02→20:49)
[2017-05-07] MEDS: AMLODIPINE 10MG TABLET NG SCH ×2 (09:02→20:48)
[2017-05-07] MEDS: METOPROLOL TARTRATE 25MG TABLET PO SCH ×2 (09:02→20:48)
[2017-05-07 09:11] LABS: PHOSPHORUS 3.5 mg/dL (2.5-4.9)
[2017-05-07] MEDS: ENALAPRIL 1.25MG/ML VIAL 1ML IV PRN (11:23)
[2017-05-07] MEDS: CLONIDINE 0.2MG TABLET PO SCH ×2 (14:08→22:33)
[2017-05-07 15:52] LABS: PLATELET ESTIMATE NORMAL
[2017-05-07] MEDS: INSULIN DETEMIR UD 100 UNITS/ML SYR SUBCUT SCH (21:08)
[2017-05-08] VITALS (9 sets, daily range): BP systolic 134–166; BP diastolic 64–92
[2017-05-08] MEDS: METOCLOPRAMIDE HCL 10MG/2ML VIAL IV SCH ×2 (00:01→05:49)
[2017-05-08] MEDS: IPRATROPIUM/ALBUTEROL 0.5-3(2.5)MG/3ML NEB HHN SCH ×3 (00:22→09:02)
[2017-05-08] MEDS: HYDROMORPHONE HCL/PF 2MG/ML CPJ IV PRN ×3 (02:27→08:56)
[2017-05-08] MEDS: METRONIDAZOLE 500 MG PREMIX 100 ML IV SCH (03:56)
[2017-05-08] MEDS: HYDRALAZINE HCL 50MG TABLET PO SCH (06:11)
[2017-05-08] MEDS: CLONIDINE 0.2MG TABLET PO SCH (06:11)
[2017-05-08 06:22] LABS: HEMATOCRIT. 28.4 % (36.0-48.0); HEMOGLOBIN. 9.2 g/dL (12.0-16.0); MEAN CORPUSCULAR HEMOGLOBIN 27.2 pg (28.0-32.0); MEAN PLATELET VOLUME 8.9 fl (7.4-10.4); PLATELET 189 x1000/uL (130-400); RED BLOOD CELL COUNT 3.38 mill/uL (4.2-5.4); RED CELL DISTRIBUTION WIDTH 16.7 % (11.6-14.6)
[2017-05-08] MEDS: BLOOD SUGAR DIAGNOSTIC STRIP TEST SCH (06:50)
[2017-05-08] MEDS: INSULIN LISPRO 100 UNITS/ML SUBCUT SCH (06:57)
[2017-05-08] MEDS: PANTOPRAZOLE SODIUM 40 MG/VIAL IV SCH (08:34)
[2017-05-08] MEDS: FOLIC ACID/VITAMIN B COMP W-C TABLET PO SCH (08:34)
[2017-05-08] MEDS: AMLODIPINE 10MG TABLET NG SCH (08:34)
[2017-05-08] MEDS: DOCUSATE SODIUM SUGAR FREE 100MG/10ML UDC NG SCH (08:34)
[2017-05-08] MEDS: CLONIDINE 0.3MG TABLET PO SCH (08:35)
[2017-05-08] MEDS: METOPROLOL TARTRATE 25MG TABLET PO SCH (08:35)
[2017-05-08] MEDS: POTASSIUM CHLORIDE 20MEQ TABLET SR PO SCH (08:35)
[2017-05-08] MEDS: AZTREONAM 1 G in DEXTROSE 5% WATER 50 ML IV SCH (08:36)
[2017-05-08] MEDS: POLYETHYLENE GLYCOL 3350 (17GM) 1 DOSE PACK PO SCH (08:43)
[2017-05-08] MEDS ORDERED: PREDNISONE 20MG TABLET PO SCH (09:00)
[2017-05-08] MEDS: VANCOMYCIN 1 G PREMIX 200 ML IV SCH (10:17)
[2017-05-08 17:48] LABS: PLATELET ESTIMATE NORMAL
== END 2017-05-08 12:25 | disposition home or self-care (01) | DRG 871 ==
LOC: ER 05:28 → EDBEDREQ 06:17 → EDBEDREQSVC 06:17 → CVICU 06:18 → ENRESERV 06:57 → 3WST 05-05 16:14
PROVIDERS: ADMIT Internal Medicine Nephrology; ATTEND Internal Medicine Nephrology
PROC: 5A1945Z Respiratory Ventilation, 24-96 Consecutive Hours (ICD-10-PCS; principal; 2017-05-01)
PROC: 0BH17EZ Insertion of Endotracheal Airway into Trachea, Via Natural or Artificial Opening (ICD-10-PCS; 2017-05-01)
PROC: 02HV33Z Insertion of Infusion Device into Superior Vena Cava, Percutaneous Approach (ICD-10-PCS; 2017-05-02)
PROC: B548ZZA Ultrasonography of Superior Vena Cava, Guidance (ICD-10-PCS; 2017-05-02)
PROC: 30233N1 Transfusion of Nonautologous Red Blood Cells into Peripheral Vein, Percutaneous Approach (ICD-10-PCS; 2017-05-03)
DX: A41.9 Sepsis, unspecified organism (principal); J96.01 Acute respiratory failure with hypoxia; E43 Unspecified severe protein-calorie malnutrition; G93.40 Encephalopathy, unspecified; I50.33 Acute on chronic diastolic (congestive) heart failure; J18.9 Pneumonia, unspecified organism; N17.0 Acute kidney failure with tubular necrosis; I13.0 Hypertensive heart and chronic kidney disease with heart failure and stage 1 through stage 4 chronic kidney disease, or unspecified chronic kidney disease; J44.1 Chronic obstructive pulmonary disease with (acute) exacerbation; J44.0 Chronic obstructive pulmonary disease with (acute) lower respiratory infection; K92.2 Gastrointestinal hemorrhage, unspecified; Z68.41 Body mass index [BMI] 40.0-44.9, adult; N18.9 Chronic kidney disease, unspecified; D64.9 Anemia, unspecified; E05.90 Thyrotoxicosis, unspecified without thyrotoxic crisis or storm; E11.22 Type 2 diabetes mellitus with diabetic chronic kidney disease; E66.01 Morbid (severe) obesity due to excess calories; G89.29 Other chronic pain; I25.10 Atherosclerotic heart disease of native coronary artery without angina pectoris; I27.2 Other secondary pulmonary hypertension; K21.9 Gastro-esophageal reflux disease without esophagitis; T50.2X5A Adverse effect of carbonic-anhydrase inhibitors, benzothiadiazides and other diuretics, initial encounter; M54.5 Low back pain; Z99.81 Dependence on supplemental oxygen; I25.2 Old myocardial infarction; Y92.89 Other specified places as the place of occurrence of the external cause; Z82.49 Family history of ischemic heart disease and other diseases of the circulatory system; Z83.3 Family history of diabetes mellitus; Z86.73 Personal history of transient ischemic attack (TIA), and cerebral infarction without residual deficits; Z87.11 Personal history of peptic ulcer disease; Z87.891 Personal history of nicotine dependence; Z88.0 Allergy status to penicillin
CPT/HCPCS: 31500; 36415; 36569; 36600; 51702; 71010; 74000; 76937; 78580; 80048; 80053; 80061; 80076; 80202; 80305; 81001; 82270; 82375; 82550; 82553; 82805; 82962; 83036; 83520; 83735; 83880; 84100; 84145; 84439; 84443; 84481; 84484; 85014; 85018; 85025; 85027; 85610; 86376; 86850; 86900; 86920; 87040; 87070; 87086; 87186; 92610; 93005; 93306; 93970; 94002; 94003; 94640; 96365; 96375; 97116; 97163; 97530; 99291; A6261; C1725; C9113; J0330; J0360; J1170; J1650; J1815; J1940; J1956; J2060; J2405; J2704; J2765; J2920; J2930; J3010; J3370; J3490; J7030; J7040; J7050; J7060; J7512; J7611; J7620; P9016; A4315